=== PATIENT | male | born 1965 | race African-American/Black ===

== ENCOUNTER 2023-06-11 13:14 | Inpatient (IN) | payer MEDICAID, OTHER ==
[~2023-06-11] VITALS: Ht 185.4 cm; Wt 91.5 kg
[2023-06-11] MEDS ORDERED: PANTOPRAZOLE 40 MG/10 ML VIAL INJ IV ONE (13:30)
[2023-06-11] MEDS ORDERED: MORPHINE SULFATE 4 MG/ML SYR/VIAL IV ONE (13:30)
[2023-06-11] MEDS ORDERED: ONDANSETRON HCL 4 MG/2 ML VIAL IV ONE (13:30)
[2023-06-11 14:18] LABS: Basophils # (auto) 0 10 ^3/uL (0-0.2); Basophils % (auto) 0.3 % (0.0-2.0); Eosinophils # (auto) 0.2 10 ^3/uL (0-0.8); Eosinophils % (auto) 2.7 % (0.0-7.0); Hemoglobin 13.4 g/dL (13.5-17.5); Lymphocytes # (auto) 0.9 10 ^3/uL (0.4-5.4); Lymphocytes % (auto) 15.3 % (10.0-50.0); Mean Corpuscular Hgb Conc. 33.4 g/dL (32.0-36.0); Mean Corpuscular Volume 92.8 fL (80.0-100.0); Monocytes # (auto) 0.3 10 ^3/uL (0-1.3); Monocytes % (auto) 5.7 % (0.0-12.0); Neutrophils # (auto) 4.3 10 ^3/uL (1.6-8.6); Nucleated Red Blood Cells % 0.1 %; Red Blood Cells 4.31 10^6/uL (4.5-5.90); Red Cell Distribution Width 14.2 % (11.8-14.3); White Blood Cell 5.6 10^3/uL (4.4-10.8)
[2023-06-11 14:24] LABS: Urine Bacteria NONE SEEN /hpf (None Seen); Urine Blood Negative /uL (Negative); Urine Clarity Clear (Clear); Urine Color Colorless (Yellow); Urine Protein, UAD Negative (Negative); Urine Specific Gravity 1.032 (1.001-1.035); Urine Urobilinogen Normal (Negative); Urine WBC <1 /hpf (0 - 3)
[2023-06-11 14:28] LABS: Alanine Aminotransferase 19 U/L (7-40); Albumin 4.3 g/dL (3.2-4.8); Alkaline Phosphatase 136 U/L (46-116); Anion Gap 7.7 (5-15); Aspartate Aminotransferase < 8 U/L (13-40); Blood Urea Nitrogen 17 mg/dL (9-23); Calcium 8.9 mg/dL (8.7-10.4); Carbon Dioxide 22.3 mmol/L (20-30); Chloride 109 mmol/L (98-107); Lipase 40 U/L (12-53); Potassium 3.9 mmol/L (3.5-5.1); Sodium 139 mmol/L (136-145)
[2023-06-11 14:29] LABS: Bilirubin, Total 0.5 mg/dL (0.2-1.0); Total Protein 6.4 g/dL (5.7-8.2)
[2023-06-11] MEDS ORDERED: SODIUM CHLORIDE 0.9% 1,000 ML IV ONE (14:30)
[2023-06-11 14:33] LABS: Partial Thromboplastin Time 24.8 SEC (24.5-34.5); Prothrombin Time 10.5 sec (9.3-11.8)
[2023-06-11 14:35] VITALS: PULSE 67; RESP 18; O2SAT 99
[2023-06-11 14:42] LABS: Glucose 425 mg/dL (74-106)
[2023-06-11] MEDS ORDERED: InsuLIN REG 1unit/0.01ml Soln (100units/ml) IV ONE ×2 (15:00→15:30)
[2023-06-11] MEDS ORDERED: ACETAMINOPHEN 325 MG TAB PO PRN (15:30)
[2023-06-11] MEDS ORDERED: ONDANSETRON HCL 4 MG/2 ML VIAL IV PRN (15:30)
[2023-06-11] MEDS ORDERED: HYDROcodone-ACET 5/325MG TAB PO PRN (15:30)
[2023-06-11] MEDS ORDERED: DOCUSATE SOD 100 MG CAP PO PRN (15:30)
[2023-06-11] MEDS ORDERED: DEXTROSE (50%) 50ML SYRG IV PRN (15:30)
[2023-06-11] MEDS ORDERED: LACTATED RINGER'S 1,000 ML IV ONE (15:45)
[2023-06-11] MEDS: HEPARIN SODIUM (PORCINE) 5000 UNITS/ML 1ML VIAL SC SCH (18:50)
[2023-06-11] MEDS: TAMSULOSIN HYDROCHLORIDE 0.4 MG CAP PO SCH (18:51)
[2023-06-11 20:20] VITALS: PULSE 85; RESP 15; O2SAT 95
[2023-06-11] MEDS: InsuLIN REG 1unit/0.01ml Soln (100units/ml) SC SCH ×2 (21:55→22:02)
[2023-06-11] MEDS: ACCU-CHEK COMFORT CURVE STRIP VI SCH ×2 (21:55→22:01)
[2023-06-11] MEDS: SODIUM CHLOR 0.9% PF (SALINE LOCK) 10ML VIAL/SYR IV SCH (22:03)
[2023-06-12] MEDS: HEPARIN SODIUM (PORCINE) 5000 UNITS/ML 1ML VIAL SC SCH ×4 (01:08→23:30)
[2023-06-12] MEDS: SODIUM CHLOR 0.9% PF (SALINE LOCK) 10ML VIAL/SYR IV SCH ×3 (05:00→21:51)
[2023-06-12] MEDS: InsuLIN REG 1unit/0.01ml Soln (100units/ml) SC SCH ×6 (06:37→21:43)
[2023-06-12] MEDS: ACCU-CHEK COMFORT CURVE STRIP VI SCH ×4 (06:39→19:59)
[2023-06-12] MEDS: TAMSULOSIN HYDROCHLORIDE 0.4 MG CAP PO SCH (09:48)
[2023-06-12 11:59] VITALS: BP 148/77; PULSE 74; RESP 16; TEMP 98.3; O2SAT 97
[2023-06-12] MEDS ORDERED: GLIP10TA9 PO (13:05)
[2023-06-12] MEDS ORDERED: LISI40TA16 PO (13:05)
[2023-06-12] MEDS: SODIUM CHLORIDE 0.9% 1,000 ML IV SCH ×2 (13:38→21:51)
[2023-06-12 16:40] VITALS: BP 156/91; PULSE 85; RESP 20; TEMP 98; O2SAT 100
[2023-06-12] MEDS: INSULIN LANTUS (GLARGINE) 1 /0.01ml (100units/ml) SC SCH (19:59)
[2023-06-12 20:09] VITALS: PULSE 79; RESP 17; O2SAT 97
[2023-06-12 22:00] VITALS: BP 132/73; PULSE 79; RESP 16; TEMP 99; O2SAT 98
[2023-06-13 04:54] VITALS: BP 156/93; PULSE 77; RESP 16; TEMP 98.2; O2SAT 98
[2023-06-13 06:18] LABS: Basophils # (auto) 0 10 ^3/uL (0-0.2); Basophils % (auto) 0.6 % (0.0-2.0); Eosinophils # (auto) 0.2 10 ^3/uL (0-0.8); Hematocrit 36.1 % (41.0-53.0); Lymphocytes % (auto) 30.5 % (10.0-50.0); Mean Corpuscular Hemoglobin 30.8 pg (28.0-32.0); Mean Corpuscular Hgb Conc. 33.2 g/dL (32.0-36.0); Mean Corpuscular Volume 92.8 fL (80.0-100.0); Monocytes # (auto) 0.3 10 ^3/uL (0-1.3); Monocytes % (auto) 9.6 % (0.0-12.0); Neutrophils # (auto) 1.8 10 ^3/uL (1.6-8.6); Neutrophils % (auto) 54.3 % (37.0-80.0); Nucleated Red Blood Cells % 0.1 %; Red Cell Distribution Width 13.9 % (11.8-14.3); White Blood Cell 3.4 10^3/uL (4.4-10.8)
[2023-06-13 06:33] LABS: Chloride 111 mmol/L (98-107); Potassium 3.3 mmol/L (3.5-5.1); Sodium 142 mmol/L (136-145)
[2023-06-13 06:34] LABS: Anion Gap 6.5 (5-15); Calcium 8.1 mg/dL (8.5-10.1); Carbon Dioxide 24.5 mmol/L (20-30)
[2023-06-13 06:39] LABS: BUN/Creatinine Ratio 9.3 (10.0-20.0); Blood Urea Nitrogen 10 mg/dL (9-23); Glucose 105 mg/dL (74-106)
[2023-06-13] MEDS ORDERED: POTASSIUM CHL 20 Meq TABLET PO ONE (07:00)
[2023-06-13] MEDS: ACCU-CHEK COMFORT CURVE STRIP VI SCH ×2 (08:06→12:51)
[2023-06-13] MEDS: InsuLIN REG 1unit/0.01ml Soln (100units/ml) SC SCH ×4 (08:08→12:53)
[2023-06-13] MEDS: HEPARIN SODIUM (PORCINE) 5000 UNITS/ML 1ML VIAL SC SCH (08:14)
[2023-06-13 08:34] VITALS: BP 142/90; PULSE 81; RESP 20; TEMP 97.8; O2SAT 98
[2023-06-13] MEDS ORDERED: INSREGI SC ×2 (10:13)
[2023-06-13] MEDS ORDERED: METF-370 PO ×2 (10:13)
[2023-06-13] MEDS ORDERED: INSLANTI SC (10:13)
[2023-06-13] MEDS: TAMSULOSIN HYDROCHLORIDE 0.4 MG CAP PO SCH (10:15)
[2023-06-13] MEDS: SODIUM CHLORIDE 0.9% 1,000 ML IV SCH (10:16)
[2023-06-13] MEDS: SODIUM CHLOR 0.9% PF (SALINE LOCK) 10ML VIAL/SYR IV SCH ×2 (10:16→14:00)
[2023-06-13] MEDS: INSULIN LANTUS (GLARGINE) 1 /0.01ml (100units/ml) SC SCH (10:26)
[2023-06-13 12:52] VITALS: BP 155/88; PULSE 71; RESP 19; TEMP 97.7; O2SAT 100
[2023-06-13] MEDS ORDERED: GLIP10TA9 PO (13:03)
[2023-06-14] MEDS ORDERED: FINASTERIDE 5 MG TAB PO SCH (10:00)
== END 2023-06-13 14:57 | disposition home or self-care (01) | DRG 465 ==
LOC: ER 13:14 → OVERFLOW 15:30 → WEST WING 06-12 12:28
PROVIDERS: ADMIT Internal Medicine Pulmonary Disease
DX: N13.2 Hydronephrosis with renal and ureteral calculous obstruction (principal); N17.9 Acute kidney failure, unspecified; E11.65 Type 2 diabetes mellitus with hyperglycemia; I10 Essential (primary) hypertension; I16.0 Hypertensive urgency; N40.0 Benign prostatic hyperplasia without lower urinary tract symptoms; Z79.84 Long term (current) use of oral hypoglycemic drugs; Z79.899 Other long term (current) drug therapy
CPT/HCPCS: 36415; 74176; 80048; 80053; 81001; 82962; 83036; 83690; 84484; 85025; 85610; 85730; 93005; 96374; 96375; 96376; C9113; G0378; J1815; J2405

== ENCOUNTER 2024-05-30 11:58 | Inpatient (IN) | payer MEDICAID ==
[~2024-05-30] VITALS: Ht 180.3 cm; Wt 91.0 kg
[~2024-05-30 11:58] MED LIST: GLIP10TA9 PO; INSLANTI SC; INSREGI SC; LISI40TA16 PO
[2024-05-30 14:14] LABS: Chloride 109 mmol/L (98-107); Potassium 4.2 mmol/L (3.5-5.1); Sodium 140 mmol/L (136-145)
[2024-05-30 14:15] LABS: Anion Gap 4 (5-15); Calcium 9.8 mg/dL (8.7-10.4); Carbon Dioxide 27 mmol/L (20-30)
[2024-05-30 14:17] LABS: Basophils # (auto) 0 10 ^3/uL (0-0.2); Basophils % (auto) 0.6 % (0.0-2.0); Eosinophils # (auto) 0.3 10 ^3/uL (0-0.8); Eosinophils % (auto) 5.9 % (0.0-7.0); Hemoglobin 13.4 g/dL (13.5-17.5); Lymphocytes # (auto) 1.6 10 ^3/uL (0.4-5.4); Lymphocytes % (auto) 33.5 % (10.0-50.0); Mean Corpuscular Hemoglobin 31.8 pg (28.0-32.0); Mean Corpuscular Hgb Conc. 33.6 g/dL (32.0-36.0); Mean Corpuscular Volume 94.6 fL (80.0-100.0); Monocytes # (auto) 0.3 10 ^3/uL (0-1.3); Monocytes % (auto) 6.4 % (0.0-12.0); Neutrophils # (auto) 2.5 10 ^3/uL (1.6-8.6); Neutrophils % (auto) 53.6 % (37.0-80.0); Nucleated Red Blood Cells % 0.1 %; Platelet Count (auto) 224 10^3/uL (140-450); Red Blood Cells 4.23 10^6/uL (4.5-5.90); Red Cell Distribution Width 14.3 % (11.8-14.3); White Blood Cell 4.7 10^3/uL (4.4-10.8)
[2024-05-30 14:20] LABS: BUN/Creatinine Ratio 7.8 (10.0-20.0); Blood Urea Nitrogen 10 mg/dL (9-23); Glucose 299 mg/dL (74-106)
[2024-05-30 15:29] LABS: Urine Bacteria None Seen /hpf (None Seen)
[2024-05-30] MEDS: PIPERACILLIN-TAZOB 3.375GM 100 ML IV ONE (15:35)
[2024-05-30] MEDS: SODIUM CHLORIDE 0.9% 1,000 ML IV ONE (15:35)
[2024-05-30 15:36] VITALS: O2SAT 98
[2024-05-30] MEDS: cloNIDine HCL 0.1 MG TAB PO ONE (15:36)
[2024-05-30 15:38] LABS: Urine Blood 3+ /uL (Negative); Urine Clarity Clear (Clear); Urine Color Light-Yellow (Yellow); Urine Mucus FEW (None Seen); Urine Protein, UAD Negative (Negative); Urine Specific Gravity 1.032 (1.001-1.035); Urine Urobilinogen Normal (Negative); Urine WBC <1 /hpf (0 - 3)
[2024-05-30] MEDS ORDERED: HYDROcodone-ACET 5/325MG TAB PO PRN (22:30)
[2024-05-30] MEDS ORDERED: DEXTROSE (50%) 50ML SYRG IV PRN (22:30)
[2024-05-30] MEDS ORDERED: ONDANSETRON HCL 4 MG/2 ML VIAL IV PRN (22:30)
[2024-05-30] MEDS ORDERED: DOCUSATE SOD 100 MG CAP PO PRN (22:30)
[2024-05-30] MEDS ORDERED: MORPHINE SULFATE INJ 2 MG/ml SYRG IV PRN (23:45)
[2024-05-30] MEDS ORDERED: NITROGLYCERIN 0.4 MG SL TAB SL PRN (23:45)
[2024-05-30] MEDS: ACCU-CHEK COMFORT CURVE STRIP VI SCH (23:53)
[2024-05-30] MEDS: InsuLIN REG 1unit/0.01ml Soln (100units/ml) SC SCH (23:59)
[2024-05-31] VITALS (8 sets, daily range): BP systolic 99–160; BP diastolic 66–87; PULSE 58–69; RESP 14–20; TEMP 97.4–98.3; O2SAT 98–100
[2024-05-31] MEDS: PIPERACILLIN-TAZOB 3.375GM 100 ML IV SCH (04:33)
[2024-05-31 04:39] LABS: Basophils # (auto) 0 10 ^3/uL (0-0.2); Basophils % (auto) 0.9 % (0.0-2.0); Eosinophils # (auto) 0.3 10 ^3/uL (0-0.8); Eosinophils % (auto) 6.3 % (0.0-7.0); Hematocrit 39.1 % (41.0-53.0); Hemoglobin 13.2 g/dL (13.5-17.5); Lymphocytes # (auto) 1.9 10 ^3/uL (0.4-5.4); Lymphocytes % (auto) 44.5 % (10.0-50.0); Mean Corpuscular Hemoglobin 31.4 pg (28.0-32.0); Mean Corpuscular Hgb Conc. 33.8 g/dL (32.0-36.0); Mean Corpuscular Volume 92.9 fL (80.0-100.0); Monocytes # (auto) 0.2 10 ^3/uL (0-1.3); Monocytes % (auto) 4.9 % (0.0-12.0); Neutrophils # (auto) 1.8 10 ^3/uL (1.6-8.6); Neutrophils % (auto) 43.4 % (37.0-80.0); Nucleated Red Blood Cells % 0.2 %; Platelet Count (auto) 224 10^3/uL (140-450); Red Blood Cells 4.21 10^6/uL (4.5-5.90); White Blood Cell 4.2 10^3/uL (4.4-10.8)
[2024-05-31 04:53] LABS: Alanine Aminotransferase 17 U/L (7-40); Albumin 4.2 g/dL (3.2-4.8); Alkaline Phosphatase 95 U/L (46-116); Anion Gap 6 (5-15); Aspartate Aminotransferase 12 U/L (13-40); BUN/Creatinine Ratio 11.7 (10.0-20.0); Bilirubin, Total 0.5 mg/dL (0.2-1.0); Blood Urea Nitrogen 13 mg/dL (9-23); Calcium 9.3 mg/dL (8.7-10.4); Carbon Dioxide 28 mmol/L (20-30); Chloride 110 mmol/L (98-107); Glucose 200 mg/dL (74-106); Potassium 3.7 mmol/L (3.5-5.1); Sodium 144 mmol/L (136-145); Total Protein 6.4 g/dL (5.7-8.2)
[2024-05-31] MEDS: SODIUM CHLOR 0.9% PF (SALINE LOCK) 10ML VIAL/SYR IV SCH (04:54)
[2024-05-31] MEDS ORDERED: AMLO1TAB22 PO (05:08)
[2024-05-31] MEDS: hydrALAZINE HCL 20 MG/ML VL IV PRN (06:56)
[2024-05-31] MEDS: ENOXAPARIN SOD 40 MG/0.4 ML SYRINGE SC SCH (10:00)
[2024-05-31] MEDS: LISINOPRIL 20 MG TAB PO SCH (10:26)
[2024-05-31] MEDS: amLODIPine BESYLATE 5 MG TAB PO SCH (10:26)
[2024-05-31 12:04] LABS: Amphetamine Screen, Urine Neg (NEGATIVE); Barbiturate Scree,Urine Neg (NEGATIVE); Benzodiazephine Screen, Urine Neg (NEGATIVE); Cocaine Screen, Urine Neg (NEGATIVE); Opiate Scree,Urine Neg (NEGATIVE); Phencyclidine Screen, Urine Neg (NEGATIVE)
[2024-05-31 12:05] LABS: Cannabinoid Screen, Urine Neg (NEGATIVE)
[2024-05-31] MEDS: ACETAMINOPHEN 325 MG TAB PO PRN (17:01)
[2024-05-31] MEDS: INSULIN LANTUS (GLARGINE) 1 /0.01ml (100units/ml) SC SCH (21:01)
[2024-06-01] VITALS (7 sets, daily range): BP systolic 110–152; BP diastolic 57–85; PULSE 66–86; RESP 14–22; TEMP 36.8; O2SAT 95–100
[2024-06-01 05:38] LABS: Basophils # (auto) 0 10 ^3/uL (0-0.2); Basophils % (auto) 0.8 % (0.0-2.0); Eosinophils # (auto) 0.2 10 ^3/uL (0-0.8); Eosinophils % (auto) 5.4 % (0.0-7.0); Hematocrit 37.4 % (41.0-53.0); Hemoglobin 12.9 g/dL (13.5-17.5); Lymphocytes # (auto) 1.5 10 ^3/uL (0.4-5.4); Lymphocytes % (auto) 35.1 % (10.0-50.0); Mean Corpuscular Hgb Conc. 34.5 g/dL (32.0-36.0); Mean Corpuscular Volume 92.7 fL (80.0-100.0); Monocytes # (auto) 0.3 10 ^3/uL (0-1.3); Monocytes % (auto) 7.9 % (0.0-12.0); Neutrophils # (auto) 2.2 10 ^3/uL (1.6-8.6); Neutrophils % (auto) 50.8 % (37.0-80.0); Nucleated Red Blood Cells % 0.2 %; Platelet Count (auto) 204 10^3/uL (140-450); Red Blood Cells 4.03 10^6/uL (4.5-5.90); White Blood Cell 4.4 10^3/uL (4.4-10.8)
[2024-06-01 05:47] LABS: Calcium 9.1 mg/dL (8.7-10.4); Chloride 110 mmol/L (98-107); Potassium 3.6 mmol/L (3.5-5.1); Sodium 141 mmol/L (136-145)
[2024-06-01 05:48] LABS: Anion Gap 3 (5-15); Carbon Dioxide 28 mmol/L (20-30)
[2024-06-01 05:53] LABS: BUN/Creatinine Ratio 13.2 (10.0-20.0); Blood Urea Nitrogen 17 mg/dL (9-23); Glucose 129 mg/dL (74-106)
[2024-06-01] MEDS ORDERED: CEPH250C PO ×2 (12:47→12:48)
== END 2024-06-01 19:10 | disposition home or self-care (01) | DRG 383 ==
LOC: ER 11:58 → TELE 23:34 → TELE-EAST 23:34 → TELE-E-ADS 05-31 03:40 → TELE-EAST 05-31 17:47
PROVIDERS: ADMIT Internal Medicine; ATTEND Emergency Medicine
DX: L03.032 Cellulitis of left toe (principal); E11.65 Type 2 diabetes mellitus with hyperglycemia; I10 Essential (primary) hypertension; Z79.4 Long term (current) use of insulin; I16.0 Hypertensive urgency; Z79.899 Other long term (current) drug therapy; Z79.84 Long term (current) use of oral hypoglycemic drugs
CPT/HCPCS: 36415; 73700; 80048; 80053; 80307; 81001; 82962; 83036; 84550; 85025; G0378; J1815; J2543

== ENCOUNTER 2025-01-23 12:51 | Emergency (ER) | payer MEDICAID ==
[~2025-01-23] VITALS: Ht 182.9 cm; Wt 86.8 kg
[~2025-01-23 12:51] MED LIST changes: +AMLO1TAB22 PO; +CEPH250C PO; -INSLANTI SC; -INSREGI SC; -LISI40TA16 PO
[2025-01-23 13:02] VITALS: TEMP 97.2
--- NOTE | 2025-01-23 13:28 | ED.PDOC ---
GI ASSESSMENT HPI Comments HPI: 59y M who presents to the ED for chief complaint of lower throat pain. - pt states he has felt something is stuck in his throat since yesterday - pt states he ate a small piece of chicken and afterwards felt something was stuck - pt has since not eaten or drank since. - pt denies any associated shortness of breath, chest pain, or any associated symptoms - pt states he has had similar symptoms 20 years ago and states he had EGD done and was found with a esophageal strictures and required some esophageal dilatation. -pt otherwise has states he has been spitting since. - Past Medical history: HTN, DM Past Surgical history: EGD, Medications: amlodipine, glipizide Allergies: denies Social History: denies ETOH, denies tobacco use, denies drug use HPI: Poor Historian. REVIEW OF SYSTEMS: CONSTITUTIONAL: Denies acute: fever, diaphoresis, chills, generalized weakness. HEAD: Denies acute: headache, photophobia Eyes: Denies acute: Double vision, vision loss, eye pain, eye discharge. EARS: Denies acute: tinnitus, hearing loss, ear discharge, ear pain, THROAT: Denies acute: , swelling, change in voice. NECK: Denies acute: neck pain, neck swelling, stiff neck. HEART: Denies acute : chest pain, palpitations, LUNGS: Denies acute: SOB, wheezing, cough, hemoptysis ABDOMEN: Denies acute: abdominal pain, Nausea, Vomiting, diarrhea, melena , hematemesis, hematochezia SKIN: Denies acute: rash, redness, lesions, itchiness. EXTREMITIES: Denies acute: calf pain, numbness, tingling, weakness, denies pain in extremity. Denies acute: Low back pain. Neuro: Denies acute: focal neurological deficit, motor or sensory focal neurological deficit, tremors, seizure like activity, confusion, dizziness, change in mental status, loss of bowel or bladder function, cauda equina like symptoms. : Denies acute: dysuria, hematuria, flank pain, increase in urinary frequency. PSYCH: Denies acute: hallucination, suicidal ideation, homicidal ideation. PHYSICAL EXAM: General: ---mild-----acute distress, awake and alert. Head: normocephalic, atraumatic. Neck: supple, trachea is midline, no swelling. Throat: Normal phonation. No evidence of obstruction swelling erythema. Not drooling. Eyes:, no erythema, no purulent discharge, no proptosis, no icterus. Heart: regular rate, regular rhythm, no significant murmur appreciated. Lungs: no apparent respiratory distress, Able to speak in full sentences. No wheezing, no rhonchi, no crackles. No stridors Clear to auscultation bilaterally. Abdomen: non tender to palpation, non distended, soft, no guarding, no rebound, + bowel sounds. Neuro: Awake, Alert, oriented to name, self, situation, follows commands GCS=15. Speech is normal. Skin: no petechia, no purpura, no cyanosis, non-pale, not jaundice. Lower extremities: --no - Pitting edema no deformity, no focal swelling, no calf TTP. Makes eye contact. moves all four extremities. Face: no apparent facial droop. Ambulating in the ED independently. ED COURSE: Chief Complaint: Neck Pain Time Seen by MD: 13:37 Primary Care Provider: NONE Reviewed Notes: Medications, Allergies Allergies: Coded Allergies: NO KNOWN ALLERGIES (Unverified , 06/11/23) Home Meds Active Scripts Cephalexin (KEFLEX CAPSULE) 250 Mg Cp, 1 CAP PO QID, #28 CAP Prov:SABI LYNCH MD 06/01/24 Glipizide (Glipizide) 10 Mg Tab, 1 TAB PO BID for DM II, #60 TAB 5 Refills Prov:LEWIS BECKWITH MD 06/13/23 Reported Medications Amlodipine Besylate (Amlodipine Besylate) 5 Mg Tab, 1 TAB PO DAILY, #30 TAB 5 Refills 05/31/24 Information Source: Patient Mode of Arrival: Ambulatory Past Medical History PAST MEDICAL HISTORY: DM, HTN Surgical History: Unknown Family History Family History: Reviewed,noncontributory to illness Social History Smoker: Non-Smoker Alcohol: Denies ETOH Use Drugs: Denies Drug Use Lives In: Home Was a procedure done? Was a procedure done?: No GI differential Dx Differential Diagnosis: Other (Obstruction, perforation, referred pain, dehydration, electrolyte abnormality,) X-Ray, Labs, Meds, VS Vital Signs Date Time Temp Pulse Resp B/P (MAP) Pulse Ox O2 Delivery O2 Flow Rate FiO2 01/23/25 16:45 82 16 112/79 (90) 98 01/23/25 16:45 112/79 01/23/25 14:26 142/87 01/23/25 13:02 97.2 97 14 158/99 (118) 98 97.2 Lab Test 01/23/25 13:30 Range/Units White Blood Count 3.8 L 4.4-10.8 10^3/uL Red Blood Count 4.24 L 4.5-5.90 10^6/uL Hemoglobin 13.3 L 13.5-17.5 g/dL Hematocrit 38.9 L 41.0-53.0 % Mean Corpuscular Volume 91.7 80.0-100.0 fL Mean Corpuscular Hemoglobin 31.4 28.0-32.0 pg Mean Corpuscular Hemoglobin Concent 34.2 32.0-36.0 g/dL Red Cell Distribution Width 14.0 11.8-14.3 % Platelet Count 229 140-450 10^3/uL Mean Platelet Volume 7.8 6.9-10.8 fL Neutrophils (%) (Auto) 52.7 37.0-80.0 % Lymphocytes (%) (Auto) 32.7 10.0-50.0 % Monocytes (%) (Auto) 6.6 0.0-12.0 % Eosinophils (%) (Auto) 6.4 0.0-7.0 % Basophils (%) (Auto) 1.6 0.0-2.0 % Neutrophils # (Auto) 2.0 1.6-8.6 10 ^3/uL Lymphocytes # (Auto) 1.3 0.4-5.4 10 ^3/uL Monocytes # (Auto) 0.3 0-1.3 10 ^3/uL Eosinophils # (Auto) 0.2 0-0.8 10 ^3/uL Basophils # (Auto) 0.1 0-0.2 10 ^3/uL Nucleated Red Blood Cells 0.1 % Sodium Level 142 136-145 mmol/L Potassium Level 3.9 3.5-5.1 mmol/L Chloride Level 108 H 98-107 mmol/L Carbon Dioxide Level 26 20-31 mmol/L Anion Gap 8 5-15 Blood Urea Nitrogen 14 9-23 mg/dL Creatinine 1.24 0.700-1.30 mg/dL Glomerular Filtration Rate Calc 66 >90 mL/min BUN/Creatinine Ratio 11.3 10.0-20.0 Serum Glucose 232 H 74-106 mg/dL Lactic Acid Level 1.3 0.4-2.0 mmol/L Calcium Level 9.5 8.7-10.4 mg/dL Total Bilirubin 0.7 0.2-1.0 mg/dL Aspartate Amino Transferase (AST) 20 13-40 U/L Alanine Aminotransferase (ALT) 20 7-40 U/L Alkaline Phosphatase 72 46-116 U/L Troponin I High Sensitivity < 3 L </=54 ng/L Total Protein 6.5 5.7-8.2 g/dL Albumin 4.5 3.2-4.8 g/dL [place] [id number] Ph: [phone] DIAGNOSTIC IMAGING Diagnostic Imaging Report : [id number] Signed PATIENT: LORETTA SANCHEZ ONEILACCT: [id number] UNIT: [id number] : 1965 LOC: ER ROOM / BED: / AGE / SEX: 59 / M ADM STATUS: REG ER SERVICE [id number] ORDERING PHYSICIAN: CHAVA FLORES DO PROCEDURE(s): CX2CT - CHEST WITHOUT CONTRAST REASON: food bolus obstruction ORDER NUMBER(s): [id number], ACCESSION NUMBER(s): [id number] EXAM: CT CHEST WITHOUT CONTRAST History: food bolus obstruction Comparison Study: None available TECHNIQUE: Multidetector CT of the chest was performed. Imaging was performed without IV contrast. Axial, coronal, and sagittal multiplanar reformats were obtained from the axial data set by the technologist. Radiation Dose : CTDI vol 13.18 mGy, DLP 544.77 mGy*cm. Findings: Lungs: The lungs are clear. Pleura: Unremarkable Heart/Great vessels: No cardiomegaly or pericardial effusion. Mediastinum: Unremarkable. No esophageal obstruction. Soft tissues/Bones: Unremarkable Bilateral nonobstructive nephrolithiasis. The partially visualized upper abdomen is within normal limits. Impression: 1. No acute cardiopulmonary disease. 2. No esophageal obstruction. ATED BY: SHEELA JAIME DO DICTATED DATE/TIME: 01/23/251415 SIGNED BY: SHEELA JAIME DO SIGNED DATE/TIME: 01/23/251415 CC: Time of 1ST Reevaluation: 00:00 Reevaluation 1ST: Unchanged Patient Education/Counseling: Diagnosis, Treatment Family Education/Counseling: No Family Present Comments Patient presented with the above HPI.--food bolus esophageal impaction----workup was initiated. patient was found with the above mentioned diagnosis. the following medications were ordered: please refer to order lists of meds and tests obtained by myself Dr. Flores. Patient ED course and VS have been stabilized. Patient has been reassessed in the ED and remained in a stable condition. Patient has been observed in the ED adequate length of time to insure improvement/stability. Escalation of care considered: Consideration of escalation to observation or admission However patient decided to leave against medical advice. Most likely because his symptoms have resolved. All the reports of any imaging studies that were ordered by myself were reviewed by myself. Departure 1 Departure Time of Disposition: 14:37 Impression: Primary Impression: Food impaction of esophagus Additional Impression: Left against medical advice Disposition: 07 LEFT AGAINST MEDICAL ADVICE Condition: Guarded Discharged With: Self Critical Care Note Critical Care Time?: No I personally scribed for CHAVA FLORES DO ([email or web address]) on 01/23/25 at 13:28. Electronically submitted by Lincoln CRUZ). I personally scribed for CHAVA FLORES DO ([email or web address]) on 01/23/25 at 13:37. Electronically submitted by Lincoln Pagan ([email or web address]). I personally scribed for CHAVA FLORES DO ([email or web address]) on 01/23/25 at 14:58. Electronically submitted by Lincoln CRUZ). CHAVA FLORES DO Jan 23, 2025 13:28
[2025-01-23 13:44] LABS: Basophils # (auto) 0.1 10 ^3/uL (0-0.2); Basophils % (auto) 1.6 % (0.0-2.0); Eosinophils # (auto) 0.2 10 ^3/uL (0-0.8); Eosinophils % (auto) 6.4 % (0.0-7.0); Hematocrit 38.9 % (41.0-53.0); Hemoglobin 13.3 g/dL (13.5-17.5); Lymphocytes # (auto) 1.3 10 ^3/uL (0.4-5.4); Lymphocytes % (auto) 32.7 % (10.0-50.0); Mean Corpuscular Hemoglobin 31.4 pg (28.0-32.0); Mean Corpuscular Hgb Conc. 34.2 g/dL (32.0-36.0); Mean Corpuscular Volume 91.7 fL (80.0-100.0); Monocytes # (auto) 0.3 10 ^3/uL (0-1.3); Monocytes % (auto) 6.6 % (0.0-12.0); Neutrophils % (auto) 52.7 % (37.0-80.0); Nucleated Red Blood Cells % 0.1 %; Platelet Count (auto) 229 10^3/uL (140-450); Red Blood Cells 4.24 10^6/uL (4.5-5.90); White Blood Cell 3.8 10^3/uL (4.4-10.8)
[2025-01-23 14:04] LABS: Alanine Aminotransferase 20 U/L (7-40); Albumin 4.5 g/dL (3.2-4.8); Alkaline Phosphatase 72 U/L (46-116); Anion Gap 8 (5-15); Aspartate Aminotransferase 20 U/L (13-40); BUN/Creatinine Ratio 11.3 (10.0-20.0); Bilirubin, Total 0.7 mg/dL (0.2-1.0); Blood Urea Nitrogen 14 mg/dL (9-23); Calcium 9.5 mg/dL (8.7-10.4); Carbon Dioxide 26 mmol/L (20-31); Potassium 3.9 mmol/L (3.5-5.1); Sodium 142 mmol/L (136-145); Total Protein 6.5 g/dL (5.7-8.2)
[2025-01-23 14:09] LABS: Chloride 108 mmol/L (98-107); Glucose 232 mg/dL (74-106)
--- NOTE | 2025-01-23 14:18 | DVH ---
EXAM: CT CHEST WITHOUT CONTRAST History: food bolus obstruction Comparison Study: None available TECHNIQUE: Multidetector CT of the chest was performed. Imaging was performed without IV contrast. Ax ial, coronal, and sagittal multiplanar reformats were obtained from the axial data set by the technol meryl. Radiation Dose : CTDI vol 13.18 mGy, DLP 544.77 mGy*cm. Findings: Lungs: The lungs are clear. Pleura: Unremarkable Heart/Great vessels: No cardiomegaly or pericardial effusion. Mediastinum: Unremarkable. No esophageal obstruction. Soft tissues/Bones: Unremarkable Bilateral nonobstructive nephrolithiasis. The partially visualized upper abdomen is within normal welch its. Impression: 1. No acute cardiopulmonary disease. 2. No esophageal obstruction.
[2025-01-23] MEDS: SODIUM CHLORIDE 0.9% 1,000 ML IV ONE (14:26)
[2025-01-23] MEDS: NITROGLYCERIN 0.4 MG SL TAB SL ONE (14:26)
[2025-01-23] MEDS: STERILE WATER IV ONE (15:29)
[2025-01-23] MEDS: GLUCAGON EMERG KIT 1mg/1ml IV ONE (15:29)
[2025-01-23 16:45] VITALS: BP 112/79; PULSE 82; RESP 16; O2SAT 98
== END 2025-01-23 19:44 | disposition left against medical advice (07) ==
LOC: ER 12:56
DX: R07.0 Pain in throat (principal); E11.9 Type 2 diabetes mellitus without complications; I10 Essential (primary) hypertension; Z79.84 Long term (current) use of oral hypoglycemic drugs; Z79.899 Other long term (current) drug therapy
CPT/HCPCS: 36415; 71250; 80053; 82947; 83605; 84484; 85025; 96361; 96374; 99285; J1610; J7030; 96375